=== PATIENT | female | born 1980 | race Caucasian/White ===

== ENCOUNTER → 2022-12-30 | Outpatient (CLI) | payer SELFPAY ==
[~2022-12-30] MED LIST: ACET325 PO; ACYC400 PO; ADVIL100 MG PO; Aspir 8181 MG PO; Augmentin 875-1 EACH PO; CEPH500 PO; Colace100 MG PO; DIPH50 PO; FLUC150A PO; FOLI1 PO; IBUP400 PO; LABE100 PO; NAPR500 PO; Norco 5-325 Ta1 EACH PO; OXYACE5T PO; Percocet 5-3251 EACH PO; Pyridium100 MG PO; Verotin-Gr Cap1 EACH PO; Zofran Odt4 MG SL
== END | disposition home or self-care (01) ==
LOC: LAB SHORT 15:34 → LAB 15:34
DX: N39.0 Urinary tract infection, site not specified (principal)
CPT/HCPCS: 87077; 87086